=== PATIENT | male | born 1950 | race American Indian/Alaskan Native ===

== ENCOUNTER 2020-08-24 16:51 | Emergency (ER) | payer OTHER ==
--- OUTSIDE RECORDS SUMMARY | 2020-08-24 16:54 | XMS REPORT | Continuity of Care Document ---
:1950 Author Organization [facility] t Address [address] [place] [address] Care Team Providers Name Role Phone JOCE Attending Clinician Unavailable Problems This patient has no known problems. Allergies, Adverse Reactions, Alerts This patient has no known allergies or adverse reactions. Medications This patient has no known medications. Procedures This patient has no known procedures. Encounters Start End Encounter Admission Attending Care Care Encounter Source Date/Time Date/Time Type Type Clinicians Facility Department ID 2020-08-14 2020-08-14 Outpatient JOCE [facility] [id number] 00:00:00 00:00:00 CM [address] 2020-07-24 2020-07-24 Outpatient [facility] [id number] 00:00:00 00:00:[address] Results This patient has no known results.
[2020-08-24 17:51] LABS: Absolute Lymphocytes (CBC) 2.4 K/uL (0.7-4.9); Basophils % 0.3 % (0-1.3); Hematocrit 35.5 % (39.6-49.0); Lymphocytes % 26.7 % (15.3-44.8); MPV 8.7 fL (7.6-11.3); RBC Red Blood Cell Count 3.85 M/uL (4.33-5.43)
[2020-08-24] MEDS ORDERED: MAGNES/ALUMIN/SIMET 30ML UCUP ONE (17:54)
[2020-08-24] MEDS ORDERED: ONDANSETRON 4 MG/2 ML VIAL ONE (17:54)
[2020-08-24] MEDS ORDERED: LIDOCAINE VISCOUS 2% SOLN 15 ML UDC ONE (17:54)
[2020-08-24] MEDS ORDERED: NA CHLORIDE 0.9% 500 ML ONE (17:54)
[2020-08-24] MEDS ORDERED: FAMOTIDINE 20 MG/2 ML VIAL IV ONE (17:55)
[2020-08-24 18:09] LABS: Albumin 3.2 g/dL (3.4-5.0); Bilirubin Direct 0.3 mg/dL (0-0.2); Bilirubin Total 0.6 mg/dL (0.2-1.0); Potassium 3.3 mmol/L (3.5-5.1); Protein, Total 6.4 g/dL (6.4-8.2)
--- NOTE | 2020-08-24 19:10 | ER ---
Nurse's Notes [facility] Name: Fidencio Pop Age: 69 yrs Sex: Male : 1950 Arrival Date: 08/24/2020 Time: 16:52 Bed 8 Private MD: Diagnosis: Stomatitis and related lesions;Nausea Presentation: 08/24 16:53 Chief complaint: Chief complaint: Chief complaint: Pt's daughter states "for the last aa5 few months he has had cuts on his tongue and his tongue cannon and he's not able to eat much, so we have seen several doctors including a GI doctor which gave him gas relief pills over the counter and wanted him to take probiotics, an ENT doctor which gave him and antifungal, and then back to his PCP which gave him a B12 shot and gave him vitamin D". Pt's daughter reports increased decreased intake x 2-3 days ago, dry oral mucosa, and weight loss of approximately 15 lbs over the last 3 months. 16:53 Method Of Arrival: Wheelchair aa5 16:53 Coronavirus screen: At this time, the client does not indicate any symptoms associated aa5 with coronavirus-19. Ebola Screen: Patient negative for fever greater than or equal to 101.5 degrees Fahrenheit, and additional compatible Ebola Virus Disease symptoms. Initial Sepsis Screen: Does the patient meet any 2 criteria? No. Patient's initial sepsis screen is negative. Does the patient have a suspected source of infection? No. Patient's initial sepsis screen is negative. Risk Assessment: Do you want to hurt yourself or someone else? Patient reports no desire to harm self or others. Onset of symptoms was 2020. 16:53 Acuity: BISI 3 aa5 Historical: - Allergies: 17:19 No Known Allergies; ca1 - PMHx: 17:19 Hypertension; High Cholesterol; Gastric Reflux; ca1 17:22 stomach ulcer; small bowel obstruction; aa5 - Immunization history:: Adult Immunizations up to date. - Social history:: Smoking status: Patient denies any tobacco usage or history of. Screenin:14 Abuse screen: Denies threats or abuse. Denies injuries from another. Nutritional ca1 screening: No deficits noted. Tuberculosis screening: No symptoms or risk factors identified. Fall Risk IV access (20 points). Assessment: 17:14 General: Appears in no apparent distress. comfortable, Behavior is calm, cooperative, ca1 appropriate for age. Pain: Complains of pain in tongue Pain began 2 - 3 months. Neuro: Level of Consciousness is awake, alert, obeys commands, Oriented to person, place, time, situation. Cardiovascular: Heart tones S1 S2 present Capillary refill < 3 seconds Patient's skin is warm and dry. Respiratory: Airway is patent Respiratory effort is even, unlabored, Respiratory pattern is regular, symmetrical, Breath sounds are clear bilaterally. GI: Abdomen is flat, non-distended, Bowel sounds present X 4 quads. Abd is soft and non tender X 4 quads. : No deficits noted. No signs and/or symptoms were reported regarding the genitourinary system. EENT: Oral mucosa is moist. Derm: Skin is intact, is healthy with good turgor, Skin is pink, warm \\T\\ dry. Musculoskeletal: Circulation, motion, and sensation intact. Capillary refill < 3 seconds. 18:20 Reassessment: Patient appears in no apparent distress at this time. Patient and/or ca1 family updated on plan of care and expected duration. Pain level reassessed. Patient is alert, oriented x 3, equal unlabored respirations, skin warm/dry/pink. 19:20 Reassessment: Patient appears in no apparent distress at this time. Patient and/or em family updated on plan of care and expected duration. Pain level reassessed. Patient is alert, oriented x 3, equal unlabored respirations, skin warm/dry/pink. Vital Signs: 16:53 BP 134 / 70; Pulse 70; Resp 16 S; Temp 97.0(TE); Pulse Ox 100% on R/A; aa5 17:19 BP 137 / 70; Pulse 70; Resp 16 S; Temp 97(TE); Pulse Ox 94% on R/A; ca1 18:20 BP 113 / 64; Pulse 67; Resp 19 S; Pulse Ox 98% on R/A; ca1 19:20 BP 127 / 63; Pulse 66; Resp 18; Pulse Ox 99% on R/A; em ED Course: 16:52 Patient arrived in ED. am2 16:53 Arm band placed on. aa5 16:55 Kev Del Rosario PA is PHCP. cp 16:55 Marcus Ward MD is Attending Physician. cp 17:08 Veronica Dobbins, RN is Primary Nurse. ca1 17:14 Patient has correct armband on for positive identification. Placed in gown. Bed in low ca1 position. Call light in reach. Side rails up X2. Pulse ox on. NIBP on. Warm blanket given. 17:18 Triage completed. aa5 17:38 Inserted saline lock: 20 gauge in right antecubital area, using aseptic technique. dh4 Blood collected. 18:46 CT Abd/Pelvis - IV Contrast Only In Process Unspecified. EDMS 19:37 No provider procedures requiring assistance completed. IV discontinued, intact, em bleeding controlled, No redness/swelling at site. Pressure dressing applied. Administered Medications: 14:20 Drug: Zofran (Ondansetron) 4 mg Route: IVP; Site: right antecubital; ca1 19:39 Follow up: Response: No adverse reaction em 17:40 Drug: NS 0.9% 500 ml Route: IV; Rate: 500 ml/hr; Site: right antecubital; ca1 19:38 Follow up: IV Status: Completed infusion; IV Intake: 500ml em 17:44 Drug: GI Cocktail without - (Maalox Suspension 30 ml, Lidocaine Liquid 2 % 15 ca1 ml) Route: PO; 19:38 Follow up: Response: No adverse reaction em 17:44 Drug: Pepcid 20 mg Route: IVP; Site: right antecubital; ca1 19:39 Follow up: Response: No adverse reaction em 19:29 Drug: Potassium Effervescent Tablet 25 mEq Route: PO; em 19:39 Follow up: Response: No adverse reaction em Intake: 19:38 IV: 500ml; Total: 500ml. em Outcome: 19:10 Discharge ordered by MD. cp 19:37 Discharged to home via wheelchair, with family. em 19:37 Condition: stable 19:37 Discharge instructions given to patient, family, Instructed on discharge instructions, follow up and referral plans. medication usage, Demonstrated understanding of instructions, follow-up care, medications, Prescriptions given X 2. 19:40 Patient left the ED. em Signatures: Dispatcher [employer] EDMS Zaid King RN RN em Sruthi Carranza RN RN aa5 Kev Del Rosario PA PA cp Magdalena Nguyen am2 Veronica Dobbins RN RN [facility] Randolph Crenshaw 4 Corrections: (The following items were deleted from the chart) 17:18 16:53 Chief complaint: aa5 aa5 17:21 16:53 Chief complaint: Chief complaint: aa5 aa5
--- NOTE | 2020-08-24 19:11 | EDPHYS ---
Physician Documentation [facility] Name: Fidencio Pop Age: 69 yrs Sex: Male : 1950 Arrival Date: 08/24/2020 Time: 16:52 Bed 8 Private MD: ED Physician Marcus Ward HPI: 08/24 17:25 This 69 yrs old Other Male presents to ER via Wheelchair with complaints of tongue cp problem, Possible dehydration. 17:25 The patient presents with burning pain of tongue and oral mucosa for past several cp months. Duration: The symptoms are continuous, waxing and waning. Associated signs and symptoms: Pertinent positives: decreased appetite and fluid intake, weight loss. 17:25 Daughter reports patient has c/o burning pain of tongue and oral mucosa for several cp months. Daughter reports patient has seen GI and is currently using steroid paste, PPI, Maalox for symptoms. Daughter concerned patient may be dehydrated because he has not been drinking much over past several days. Historical: - Allergies: 17:19 No Known Allergies; ca1 - PMHx: 17:19 Hypertension; High Cholesterol; Gastric Reflux; ca1 17:22 stomach ulcer; small bowel obstruction; aa5 - Immunization history:: Adult Immunizations up to date. - Social history:: Smoking status: Patient denies any tobacco usage or history of. ROS: 17:30 Constitutional: Positive for poor PO intake, weight loss, Negative for body aches, cp chills, fever. 17:30 Abdomen/GI: Positive for nausea, decreased appetite, Negative for abdominal pain, vomiting, diarrhea, constipation, black/tarry stool, rectal bleeding. 17:30 Eyes: Negative for injury, pain, redness, and discharge. cp 17:30 ENT: Positive for burning pain of tongue and oral mucosa, Negative for ear pain, dental pain, difficulty swallowing, difficulty handling secretions. 17:30 Cardiovascular: Negative for chest pain, edema, palpitations. 17:30 Respiratory: Negative for cough, shortness of breath, wheezing. 17:30 : Negative for urinary symptoms, flank pain, burning with urination, difficulty urinating. 17:30 Skin: Negative for cellulitis, rash. 17:30 Neuro: Negative for altered mental status, headache, weakness. 17:30 All other systems are negative. Exam: 17:35 Constitutional: The patient appears in no acute distress, alert, awake, comfortable, cp non-diaphoretic, non-toxic, well developed, well nourished. 17:35 Head/Face: Normocephalic, atraumatic. cp 17:35 Eyes: Periorbital structures: appear normal, Conjunctiva: normal, no exudate, no injection, Sclera: no appreciated abnormality, Lids and lashes: appear normal, bilaterally. 17:35 ENT: External ear(s): are unremarkable, Nose: is normal, Mouth: Lips: moist, Oral mucosa: pink and intact, moist, Tongue: displays stomatitis, Posterior pharynx: Airway: no evidence of obstruction, patent, swelling, is not appreciated, erythema, is not appreciated, exudate, is not appreciated, Voice: is normal. 17:35 Neck: ROM/movement: is normal, is supple, without pain, no range of motions limitations, no nuchal rigidity. 17:35 Chest/axilla: Inspection: normal, Palpation: is normal, no crepitus, no tenderness. 17:35 Cardiovascular: Rate: normal, Rhythm: regular, Edema: is not appreciated, JVD: is not appreciated. 17:35 Respiratory: the patient does not display signs of respiratory distress, Respirations: normal, no use of accessory muscles, no retractions, labored breathing, is not present, Breath sounds: are clear throughout, no decreased breath sounds, no stridor, no wheezing. 17:35 Abdomen/GI: Inspection: abdomen appears normal, Bowel sounds: active, all quadrants, Palpation: soft, in all quadrants, mild abdominal tenderness, in the epigastric area, rebound tenderness, is not appreciated, voluntary guarding, is not appreciated, involuntary guarding, is not appreciated. 17:35 Back: pain, is absent, ROM is normal. 17:35 Skin: cellulitis, is not appreciated, no rash present. 17:35 Neuro: Orientation: to person, place \T\ time. Mentation: is normal, Motor: moves all fours, strength is normal. Vital Signs: 16:53 BP 134 / 70; Pulse 70; Resp 16 S; Temp 97.0(TE); Pulse Ox 100% on R/A; aa5 17:19 BP 137 / 70; Pulse 70; Resp 16 S; Temp 97(TE); Pulse Ox 94% on R/A; ca1 18:20 BP 113 / 64; Pulse 67; Resp 19 S; Pulse Ox 98% on R/A; ca1 19:20 BP 127 / 63; Pulse 66; Resp 18; Pulse Ox 99% on R/A; em MDM: 17:20 Patient medically screened. cp 17:30 Differential diagnosis: generalized weakness, GI bleed, hypovolemia, dehydration, cp electrolyte abnormality. 19:10 Data reviewed: vital signs, nurses notes, lab test result(s), radiologic studies, CT cp scan. 19:10 Counseling: I had a detailed discussion with the patient and/or guardian regarding: the cp historical points, exam findings, and any diagnostic results supporting the discharge/admit diagnosis, lab results, radiology results, the need for outpatient follow up, a family practitioner, a jail keeper, to return to the emergency department if symptoms worsen or persist or if there are any questions or concerns that arise at home. Response to treatment: the patient's symptoms have markedly improved after treatment, VSS. Pain of oral mucosa improved. Patient observed tolerating po fluids. Will discharge to home for continued monitoring. 08/24 17:20 Order name: Basic Metabolic Panel; Complete Time: 18:55 cp 08/24 18:55 Interpretation: Normal except: K 3.3; GLUC 150; GFR 82. cp 08/24 17:20 Order name: CBC with Diff; Complete Time: 18:55 cp 08/24 18:55 Interpretation: Normal except: RBC 3.85; HGB 12.1; HCT 35.5. cp 08/24 17:20 Order name: Hepatic Function; Complete Time: 18:55 cp 08/24 18:55 Interpretation: Normal except: BILID 0.3; ALB 3.2; A/G 1.0. cp 08/24 17:20 Order name: Lipase; Complete Time: 18:55 cp 08/24 17:20 Order name: Urine Microscopic Only cp 08/24 18:53 Order name: Urine Dipstick--Ancillary (enter results) em1 08/24 17:20 Order name: IV Saline Lock; Complete Time: 17:37 cp 08/24 17:26 Order name: CT Abd/Pelvis - IV Contrast Only; Complete Time: 19:30 cp 08/24 18:53 Order name: Urine Dipstick-Ancillary EDMS 08/24 17:20 Order name: Labs collected and sent; Complete Time: 17:37 cp 08/24 17:20 Order name: Urine Dipstick-Ancillary (obtain specimen); Complete Time: 18:51 cp Administered Medications: 14:20 Drug: Zofran (Ondansetron) 4 mg Route: IVP; Site: right antecubital; ca1 19:39 Follow up: Response: No adverse reaction em 17:40 Drug: NS 0.9% 500 ml Route: IV; Rate: 500 ml/hr; Site: right antecubital; ca1 19:38 Follow up: IV Status: Completed infusion; IV Intake: 500ml em 17:44 Drug: GI Cocktail without - (Maalox Suspension 30 ml, Lidocaine Liquid 2 % 15 ca1 ml) Route: PO; 19:38 Follow up: Response: No adverse reaction em 17:44 Drug: Pepcid 20 mg Route: IVP; Site: right antecubital; ca1 19:39 Follow up: Response: No adverse reaction em 19:29 Drug: Potassium Effervescent Tablet 25 mEq Route: PO; em 19:39 Follow up: Response: No adverse reaction em Disposition: 08/25 19:28 Co-signature as Attending Physician, Marcus Ward MD. ma2 Disposition: 08/24/20 19:10 Discharged to Home. Impression: Stomatitis and related lesions, Nausea. - Condition is Stable. - Discharge Instructions: Nausea, Adult, Stomatitis. - Prescriptions for Lidocaine Viscous - take 5 milliliter by ORAL route every 4-6 hours As needed swish, gargle, swallow; 1 bottle. Zofran 4 mg Oral Tablet - take 1 tablet by ORAL route every 12 hours As needed; 20 tablet. - Medication Reconciliation Form, Thank You Letter, Antibiotic Education, Prescription Opioid Use form. - Follow up: Private Physician; When: 1 - 2 days; Reason: Recheck today's complaints. - Problem is an ongoing problem. - Symptoms have improved. Signatures: Dispatcher [employer] Zaid Lynch RN RN em Calderon, Audri, RN RN aa5 Kev Del Rosario PA PA cp Alzahri, Mohammad, MD MD ma2 Veronica Dobbins RN RN ca1 Corrections: (The following items were deleted from the chart) 08/24 19:14 19:10 08/24/2020 19:10 Discharged to Home. Impression: Stomatitis and related lesions. cp Condition is Stable. Forms are Medication Reconciliation Form, Thank You Letter, Antibiotic Education, Prescription Opioid Use. Follow up: Private Physician; When: 1 - 2 days; Reason: Recheck today's complaints. Problem is an ongoing problem. Symptoms have improved. cp 19:40 19:14 08/24/2020 19:10 Discharged to Home. Impression: Stomatitis and related lesions; em Nausea. Condition is Stable. Discharge Instructions: Stomatitis, Nausea, Adult. Prescriptions for Lidocaine Viscous - take 5 milliliter by ORAL route every 4-6 hours As needed swish, gargle, swallow; 1 bottle, Zofran 4 mg Oral Tablet - take 1 tablet by ORAL route every 12 hours As needed; 20 tablet. and Forms are Medication Reconciliation Form, Thank You Letter, Antibiotic Education, Prescription Opioid Use. Follow up: Private Physician; When: 1 - 2 days; Reason: Recheck today's complaints. Problem is an ongoing problem. Symptoms have improved. cp
--- NOTE | 2020-08-24 19:26 | RAD REPORT ---
EXAM DESCRIPTION: CT - Abdomen Pelvis W Contrast - 08/24/2020 6:46 pm CLINICAL HISTORY: ABD PAIN Final report was delayed due to technical factors. COMPARISON: <Comparisons> TECHNIQUE: Biphasic, helical CT imaging of the abdomen and pelvis was performed following 100 ml non -ionic IV contrast. No oral contrast administered. All CT scans are performed using dose optimization technique as appropriate and may include automated exposure control or mA/KV adjustment according to patient size. FINDINGS: No suspicious findings in the lung bases. The liver, spleen, and pancreas show no suspicious findings. Gallbladder and biliary tree are also wi thout suspicious finding. Renal function is symmetric. There is fullness of each renal pelvis and each proximal ureter. The marina ices are not dilated. The patient has a 5 millimeter proximal left ureter stone. There is no evidence that this causes delay in function or acute obstruction of the left kidney. Correlation can be made with any left flank symptoms. A 4 mm nonobstructing calculus is present lateral mid left kidney. Katie ent has a 3 centimeter lower pole left renal cyst. No pyelonephritis or acute parenchymal process. No bladder abnormalities. No adrenal abnormalities. No significant prostate gland or seminal vesicle ab normality. No dilated bowel loops or bowel wall thickening. Left-sided diverticulosis is minimal. No active colo n process. No free air, free fluid or inflammatory stranding. No mass or bulky lymphadenopathy. Katie ent has several ventral supraumbilical hernias. These contain only fat with no congestion or edema. N o abnormality of the bowel close is in proximity to the hernias. No suspicious bony findings. Disc and bone degenerative changes are present. Lowest lumbar level is sacralized. IMPRESSION: No bowel obstruction, free air, occult malignancy or other emergent abdomen or pelvis fi nding. Patient does have a 5 millimeter stone in the proximal left ureter without evidence for delayed or as ymmetric renal function. Patient has extrarenal pelves right and left. Calices are not dilated. Clin ically significant ureteral obstructive process is doubtful but can be correlated with clinical prese ntation. Multiple supraumbilical ventral hernias contain only fat. No congestion or edema of the herniated fat ty tissues.
[2020-08-24 19:29] LABS: Urine Blood NEGATIVE (NEG); Urine Glucose NEGATIVE (NEG); Urine Protein NEGATIVE (NEG)
[2020-08-24 19:30] LABS: Urine Bacteria <20 /HPF (NONE SEEN); Urine RBC <5 /HPF (NONE SEEN)
[2020-08-24] MEDS ORDERED: POTASSIUM 25 MEQ EFFERV TAB ONE (19:38)
[2020-08-24 19:52] VITALS: TEMP 97
[2020-08-24 19:55] VITALS: BP 127/63; O2SAT 99
== END 2020-08-24 19:40 | disposition home or self-care (01) ==
LOC: ER 16:51
DX: K12.1 Other forms of stomatitis (principal); I10 Essential (primary) hypertension
CPT/HCPCS: 96361; 85025; 80048; 36415; 80076; 83690; 74177; 96375; 96374; 99284; Q9967; J7040; J2405; 81003; 81015